=== PATIENT | female | born 1990 ===

== ENCOUNTER 2025-03-31 04:47 | Emergency (ER) | payer OTHER ==
[~2025-03-31] VITALS: Ht 172.7 cm; Wt 106.6 kg
[2025-03-31] MEDS ORDERED: NS 1,000 ML IV SCH (04:55)
[2025-03-31 05:10] LABS: BASOPHILS ABSOLUTE AUTO 0.06 K/mm3 (0.00-0.23); BASOPHILS PERCENT AUTO 1 % (0-2); EOSINOPHILS ABSOLUTE AUTO 0.08 K/mm3 (0.00-0.68); EOSINOPHILS PERCENT AUTO 1 % (0-6); Hematocrit 39.5 % (33.0-51.0); Hemoglobin 13.4 g/dL (11.5-16.0); IMMATURE GRAN ABSOLUTE AUTO 0.05 K/mm3 (0.00-0.10); IMMATURE GRAN PERCENT AUTO 1 % (0-1); LYMPHOCYTES ABSOLUTE AUTO 1.48 K/mm3 (0.84-5.20); LYMPHOCYTES PERCENT AUTO 15 % (21-46); MONOCYTES ABSOLUTE AUTO 0.36 K/mm3 (0.16-1.47); MONOCYTES PERCENT AUTO 4 % (4-13); Mean Corpuscular HGB Conc 33.9 g/dL (31.5-36.5); Mean Corpuscular Volume 90 fL (80-100); NEUTROPHILS ABSOLUTE AUTO 7.65 K/mm3 (1.96-9.15); NEUTROPHILS PERCENT AUTO 79 % (41-73); NRBC ABSOLUTE 0.00 K/mm3 (0.00-0.02); NRBC Auto 0.0 /100 WBC (0.0-0.2); Platelet Count 265 K/mm3 (150-400); RDW Coefficient Variation 12.4 % (11.7-14.2); RDW Standard Deviation 40.6 fL (35.1-46.3)
[2025-03-31 05:56] LABS: Thyroid Stimulating Hormone 1.52 uIU/mL (0.360-4.800)
[2025-03-31 06:19] LABS: Alanine Aminotransfer (ALT/SGP 21.0 U/L (12-78); Albumin, Blood 3.5 g/dL (3.4-5.0); Albumin/Globulin Ratio 0.9 (0.8-1.8); Anion Gap 13.0 mmol/L (3-11); Aspartate Aminotrans (AST/SGOT 21.0 U/L (12-37); Bilirubin, Total 0.4 mg/dL (0.1-1.0); Blood Urea Nitrogen 15.0 mg/dL (8-24); CO2, Blood 19.0 mmol/L (21-32); Calcium, Blood 8.5 mg/dL (8.5-10.1); Chloride, Blood 107.0 mmol/L (98-108); Creatinine, Blood 0.71 mg/dL (0.40-1.00); Globulin, Blood 3.9 g/dL (2.2-4.0); Glucose, Blood 193.0 mg/dL (70-99); Potassium, Blood 3.6 mmol/L (3.5-5.5); Sodium, Blood 135.0 mmol/L (136-145); Total Protein, Blood 7.4 g/dL (6.4-8.2)
[2025-03-31] MEDS ORDERED: Haloperidol Lactate Inj. 5 MG/ML Injection IV ONE (07:15)
[2025-03-31] MEDS ORDERED: Ketorolac Tromethamine 30mg Vial IV ONE (07:15)
[2025-03-31 07:23] LABS: U Amphetamine Screen Not Detected; U Barbituate Screen Not Detected; U Benzodiazapine Screen Not Detected; U Buprenorphine Screen Not Detected; U Cannabinoids Screen DETECTED; U Cocaine Screen Not Detected; U Methadone Screen Not Detected; U Methamphetamine Screen Not Detected; U Opiates Screen Not Detected; U Oxycodone Screen Not Detected; U Phencyclidine Screen Not Detected
[2025-03-31] MEDS ORDERED: Benztropine Mesylate 1 MG/ML 2ML Amp IV ONE (07:45)
[2025-03-31] MEDS ORDERED: METO10 PO (09:14)
[2025-03-31] MEDS ORDERED: IBUP400 PO (09:14)
[2025-03-31] MEDS ORDERED: ONDA4ODT MM (09:14)
[2025-03-31] MEDS ORDERED: Morphine Sulfat15 MG PO (09:14)
== END 2025-03-31 10:01 | disposition home or self-care (01) ==
LOC: ER 04:47
PROVIDERS: Emergency Medicine
DX: R56.9 Unspecified convulsions (principal)
CPT/HCPCS: 70450; 76705; 80053; 83690; 84443; 84703; 85025; 96374; 96375; 99285-25; J0515; J1630; J1885; J7030; J7120